=== PATIENT | male | born 1990 | race Hispanic/Latino ===

== ENCOUNTER 2019-08-07 12:18 | Emergency (ER) | payer SELFPAY ==
--- NOTE | 2019-08-07 12:59 | Event Note ---
ED Screening Note Date of service: 08/07/19 Time: 12:55 ED Screening Note: Pt complains of shortness of breath and palpitations x 2 days long car ride ~45 hrs 1 month denies hx of DVT/PE/CVA/SD denies Asthma denies Fhx of heart disease SOB worsens with ambulation This initial assessment/diagnostic orders/clinical plan/treatment(s) is/are subject to change based on patients health status, clinical progression and re- assessment by fellow clinical providers in the ED. Further treatment and workup at subsequent clinical providers discretion. Patient/guardian urged not to elope from the ED as their condition may be serious if not clinically assessed and managed. Initial orders include: labs CXR
--- NOTE | 2019-08-07 13:34 | XRay Report ---
CHEST 2 VIEWS INDICATION / CLINICAL INFORMATION: shortness of breath. COMPARISON: None available. FINDINGS: SUPPORT DEVICES: None. HEART / MEDIASTINUM: No significant abnormality. LUNGS / PLEURA: No significant pulmonary or pleural abnormality. No pneumothorax. ADDITIONAL FINDINGS: There is mild left convex scoliosis with the apex around the T5-6 level. IMPRESSION: 1. No acute findings. Signer Name: Charles Torres MD Signed: 08/07/2019 1:29 PM Workstation Name: [id number]
[2019-08-07 13:50] LABS: Hematocrit 35.2 % (35.5-45.6); Hemoglobin 11.9 gm/dl (11.8-15.2); Mean Corpuscular HGB Conc 34 % (32-34); Mean Corpuscular Volume 97 fl (84-94); Platelet Count 243 K/mm3 (140-440); Red Blood Count 3.64 M/mm3 (3.65-5.03); Red Cell Distribution Width 12.9 % (13.2-15.2)
[2019-08-07 14:16] LABS: Alanine Aminotransferase 10 units/L (7-56); Albumin 4.7 g/dL (3.9-5); BUN/Creatinine Ratio 42; Blood Urea Nitrogen 38 mg/dL (9-20); Hemolysis Index 6
[2019-08-07] MEDS ORDERED: ALBUTEROL 2.5 MG/3 ML NEBU IH ONE (16:30)
[2019-08-07] MEDS ORDERED: dexAMETHasone 20 MG/5 ML VIAL IV ONE (16:31)
--- NOTE | 2019-08-07 16:39 | Emergency Department Report ---
ED General Adult HPI - General Chief complaint: Arrhythmia/Palpitations Stated complaint: YOGESH Time Seen by Provider: 08/07/19 12:55 Source: patient Mode of arrival: Ambulatory Limitations: No Limitations - History of Present Illness Initial comments: 29yo WM states that he SOB, chest tenderness, nausea and palpitations since yesterday. Pt further stated that he has coughing at night and early in the morning. He then stated that he had bronchitis as a child. -: days(s) (1) Severity scale (0 -10): 8 Quality: aching Consistency: intermittent Improves with: none Worsens with: none Associated Symptoms: chest pain, nausea/vomiting, shortness of breath - Related Data Previous Rx's Medication Instructions Recorded Last Taken Type ALBUTEROL Inhaler (OR & NICU) 1 - 2 puff IH QID PRN 30 Days #8.5 08/07/19 Unknown Rx [ProAir HFA Inhaler] gram Doxycycline Hyclate [Doxycycline 100 mg PO Q12HR 10 Days #20 tab 08/07/19 Unknown Rx Hyclate TAB] Allergies Allergy/AdvReac Type Severity Reaction Status Date / Time No Known Allergies Allergy Unverified 08/07/19 12:19 ED Review of Systems ROS: Stated complaint: YOGESH Other details as noted in HPI Comment: All other systems reviewed and negative Respiratory: see HPI Cardiovascular: as per HPI ED Past Medical Hx - Past Medical History Previous Medical History?: Yes Additional medical history: Bronchitis - Surgical History Past Surgical History?: No - Social History Smoking Status: Current Every Day Smoker Substance Use Type: Alcohol - Medications Home Medications: Home Medications Medication Instructions Recorded Confirmed Last Taken Type ALBUTEROL Inhaler (OR & NICU) 1 - 2 puff IH QID PRN 30 Days #8.5 08/07/19 Unknown Rx [ProAir HFA Inhaler] gram Doxycycline Hyclate [Doxycycline 100 mg PO Q12HR 10 Days #20 tab 08/07/19 Unknown Rx Hyclate TAB] ED Physical Exam - General Limitations: No Limitations General appearance: alert, in no apparent distress - Head Head exam: Present: atraumatic, normocephalic - Eye Eye exam: Present: normal appearance, PERRL, EOMI - ENT ENT exam: Present: normal exam, normal orophraynx, normal external ear exam - Neck Neck exam: Present: normal inspection, full ROM. Absent: tenderness - Respiratory Respiratory exam: Present: chest wall tenderness (midchest tenderness), decreased breath sounds. Absent: respiratory distress, accessory muscle use - Cardiovascular Cardiovascular Exam: Present: regular rate, normal rhythm, normal heart sounds - GI/Abdominal GI/Abdominal exam: Present: soft, normal bowel sounds. Absent: distended, tenderness - Rectal Rectal exam: Present: deferred - Extremities Exam Extremities exam: Present: normal inspection, full ROM, tenderness - Back Exam Back exam: Present: normal inspection - Neurological Exam Neurological exam: Present: alert, altered, oriented X3 - Psychiatric Psychiatric exam: Present: normal affect - Skin Skin exam: Present: warm, dry, intact ED Course Vital Signs 08/07/19 12:53 Temperature 97.8 F Pulse Rate 122 H Respiratory 17 Rate Blood Pressure 118/80 O2 Sat by Pulse 100 Oximetry ED Medical Decision Making - Lab Data Result diagrams: 08/07/19 12:28 08/07/19 12:28 - Medical Decision Making 29yo WM states that he SOB, chest tenderness, nausea and palpitations since yesterday. Pt further stated that he has coughing at night and early in the morning. He then stated that he had bronchitis as a child. Pt was given Decadron and Albuterol treatment in clinic. he stated after the Albuterol treatment that he could breathe better and felt better overall. Pt was informed that he has has an URI, he will be started on Doxycycline and a ProAir inhaler. Pt was instructed to f/u with PCP, if symptoms become severe see ER as needed. Pt verbalized understanding and agreed with the plan of care. Critical care attestation.: If time is entered above; I have spent that time in minutes in the direct care of this critically ill patient, excluding procedure time. ED Disposition Clinical Impression: Bronchitis, URI (upper respiratory infection) Disposition: DC-01 TO HOME OR SELFCARE Is pt being admited?: No Does the pt Need Aspirin: No Condition: Stable Instructions: Chronic Bronchitis (ED) Prescriptions: Doxycycline Hyclate [Doxycycline Hyclate TAB] 100 mg PO Q12HR 10 Days #20 tab ALBUTEROL Inhaler (OR & NICU) [ProAir HFA Inhaler] 1 - 2 puff IH QID PRN 30 Days #8.5 gram PRN Reason: Shortness Of Breath Referrals: PRIMARY CARE, [Primary Care Provider] - 3-5 Days [facility] [Outside] - 3-5 Days Time of Disposition: 17:31
[2019-08-07] MEDS ORDERED: dexAMETHasone 20 MG/5 ML VIAL IM ONE ×2 (16:53)
[2019-08-07 18:20] VITALS: BP 124/84
== END 2019-08-07 18:19 | disposition home or self-care (01) ==
LOC: ED 12:18
DX: J40 Bronchitis, not specified as acute or chronic (principal); J06.9 Acute upper respiratory infection, unspecified; F17.200 Nicotine dependence, unspecified, uncomplicated
CPT/HCPCS: 36415; 71046; 80053; 83880; 84484; 85027; 85379; 93005; 93010; 94640; 96372; 99284; J1100; 94644